=== PATIENT | male | born 1965 | race Caucasian/White ===

== ENCOUNTER 2020-11-14 18:20 | Emergency (ER) | payer OTHER ==
[2020-11-14] MEDS ORDERED: ATARAX25 MG PO (21:16)
== END 2020-11-14 21:46 | disposition home or self-care (01) ==
LOC: FER 18:20
DX: F41.9 Anxiety disorder, unspecified (principal); U07.1 COVID-19
CPT/HCPCS: 71045; 93005; U0002

== ENCOUNTER 2020-11-20 20:23 | Emergency (ER) | payer OTHER ==
[~2020-11-20 20:23] MED LIST: ATARAX25 MG PO
[2020-11-20 21:30] LABS: BASOPHIL 0.5 % (0-2); HCT 39.6 % (42.0-52.0); HGB 13.6 g/dl (13.2-18.0); LYMPHOCYTE 18.8 % (15-48); MCH 31.9 pg (25.0-31.0); MCHC 34.3 g/dL (32.0-36.0); MCV 92.7 fL (78.0-100.0); MONOCYTE 6.9 % (0-12); MPV 9.5 fL (6.0-9.5); NEUTROPHIL 72.3 % (41-80); NRBC 0; PLT 378 K/uL (150-400); RBC 4.27 M/uL (4.70-6.00); RDW 12.6 % (11.5-14.0); WBC 15.4 K/uL (4.0-10.5)
[2020-11-20 21:47] LABS: BUN/CREAT RATIO (CALC) 19.3 RATIO; CREATININE 0.83 mg/dL (0.67-1.17)
[2020-11-20] MEDS ORDERED: ATIVAN1 MG PO (22:18)
== END 2020-11-20 22:30 | disposition home or self-care (01) ==
LOC: FER 20:23
PROVIDERS: Emergency Medicine
DX: F41.9 Anxiety disorder, unspecified (principal); Z79.899 Other long term (current) drug therapy
CPT/HCPCS: 36415; 80048; 85025; 99284; J2060